=== PATIENT | female | born 1980 | race Caucasian/White ===

== ENCOUNTER 2018-10-31 12:05 | Inpatient (IN) | payer OTHER, BC ==
[~2018-10-31] VITALS: Ht 160 cm; Wt 72.7 kg
[2018-10-31 13:15] VITALS: BP 138/92
[2018-10-31 13:57] LABS: MICROSCOPIC NOT IND
[2018-10-31 13:57] LABS: BASOPHILS # (AUTO) 0.02 x10^3/uL (0-0.1); BASOPHILS % (AUTO) 0 % (0-1); EOSINOPHILS # (AUTO) 0.02 x10^3/uL (0-0.4); EOSINOPHILS % (AUTO) 0 % (1-7); LYMPHOCYTES # (AUTO) 1.81 x10^3/uL (1-3.4); LYMPHOCYTES % (AUTO) 17 % (22-44); MD NO; MEAN CORPUSCULAR HEMOGLOBIN 33.4 pg (27.0-34.8); MEAN CORPUSCULAR HGB CONC 33.9 g/dL (32.4-35.8); MEAN CORPUSCULAR VOLUME 98.5 fL (80-100); MEAN PLATELET VOLUME 7.7 fL (7.4-10.4); MONOCYTES # (AUTO) 0.42 x10^3/uL (0.2-0.8); MONOCYTES % (AUTO) 4 % (2-9); NEUTROPHILS # (AUTO) 8.54 x10^3/uL (1.8-6.8); NEUTROPHILS % (AUTO) 79 % (42-75); PLATELET COUNT 315 x10^3/uL (130-400); RED BLOOD COUNT 4.39 x10^6/uL (3.82-5.3); RED CELL DISTRIBUTION WIDTH 12.8 % (9.6-15.2)
[2018-10-31 14:07] LABS: ALBUMIN 2.8 g/dL (3.4-5.0); ANION GAP 9 mmol/L (5-15); CALCIUM 8.7 mg/dL (8.5-10.1); CHLORIDE 108 mmol/L (98-107)
[2018-10-31 14:11] LABS: ALANINE AMINOTRANSFERASE 36 U/L (12-78); ALKALINE PHOSPHATASE 139 U/L (45-117); BILIRUBIN,TOTAL 0.2 mg/dL (0.2-1.0); CREATININE 0.72 mg/dL (0.55-1.02); TOTAL PROTEIN 6.6 g/dL (6.4-8.2)
[2018-10-31] MEDS ORDERED: OXYTOCIN 30U/ 0.9% NaCL 500ML 500 ML IV ONE (14:29)
[2018-10-31] MEDS ORDERED: OXYTOCIN 30U/ 0.9% NaCL 500ML 500 ML IV PRN (14:29)
[2018-10-31] MEDS: D5%-LACTATED RINGERS 1,000 ML IV SCH ×2 (14:29→22:29)
[2018-10-31] MEDS ORDERED: FENTANYL PF 100 MCG/2ML IVPush PRN (14:30)
[2018-10-31] MEDS ORDERED: FENTANYL PF 100 MCG/2ML IV PRN (14:30)
[2018-10-31] MEDS ORDERED: CALCIUM CARBONATE 500 MG TAB.CHEW PO PRN (14:30)
[2018-10-31] MEDS ORDERED: ONDANSETRON 2MG/ML, 2ML IVPush PRN (14:30)
[2018-10-31] MEDS ORDERED: LIDOCAINE 1%, 20ML ONE (15:27)
[2018-10-31] MEDS ORDERED: OXYTOCIN 30U/ 0.9% NaCL 500ML 500 ML ONE (15:27)
[2018-10-31] MEDS ORDERED: CALCIUM CARBONATE 500 MG TAB.CHEW ONE (15:27)
[2018-10-31] MEDS ORDERED: MISOPROSTOL 200 MCG TABLET ONE (15:27)
[2018-10-31] MEDS ORDERED: NEWBORN KIT ONE (15:27)
[2018-10-31] MEDS ORDERED: MISOPROSTOL 25 MCG TABLET VG PRN (17:30)
[2018-10-31] MEDS ORDERED: MISOPROSTOL 25 MCG TABLET ONE (17:37)
[2018-10-31] MEDS: LACTATED RINGERS 1,000 ML IV SCH ×3 (18:46→22:06)
[2018-10-31] MEDS ORDERED: FENTANYL/BUPIV./NS/PF 250 ML EPIDCONT SCH ×2 (20:59→22:06)
[2018-10-31] MEDS ORDERED: FENTANYL/BUPIV./NS/PF 250 ML EPIDCONT ONE (21:15)
[2018-10-31] MEDS ORDERED: FENTANYL PF 500 MCG, BUPIVACAINE/PF 0.5%, 30ML 62.5 ML in SODIUM CHLORIDE 0.9% 177.5 ML EPIDCONT SCH (21:30)
[2018-10-31] MEDS ORDERED: NALOXONE 0.4 MG/ML, 1ML IVPush PRN (22:30)
[2018-10-31] MEDS ORDERED: EPHEDRINE 50 MG/ML, 1ML IVPush PRN (22:30)
[2018-10-31] MEDS ORDERED: LACTATED RINGERS 1,000 ML IVBOLUS PRN (22:30)
[2018-11-01] MEDS ORDERED: OXYTOCIN 30U/ 0.9% NaCL 500ML 500 ML ONE (02:10)
[2018-11-01] MEDS: OXYTOCIN 30U/ 0.9% NaCL 500ML 500 ML IV SCH ×2 (02:27→12:27)
[2018-11-01] MEDS ORDERED: HYDROcodone/APAP 5/325 TABLET PO PRN (02:30)
[2018-11-01] MEDS ORDERED: MISOPROSTOL 200 MCG TABLET PR PRN (02:30)
[2018-11-01] MEDS ORDERED: BISACODYL 10 MG SUPP PR PRN (02:30)
[2018-11-01] MEDS ORDERED: RHOGAM FROM BLOOD BANK 1 NOTE EA IM ONE (02:30)
[2018-11-01] MEDS ORDERED: ACETAMINOPHEN 325 MG TABLET PO PRN (02:30)
[2018-11-01] MEDS ORDERED: ONDANSETRON 2MG/ML, 2ML IV PRN (02:30)
[2018-11-01] MEDS ORDERED: IBUPROFEN 600 MG TABLET ONE (04:02)
[2018-11-01] MEDS ORDERED: OXYcodone/APAP 5/325MG TABLET ONE (04:03)
[2018-11-01] MEDS: IBUPROFEN 800 MG TABLET PO PRN ×3 (04:13→22:51)
[2018-11-01 04:15] VITALS: BP 138/86
[2018-11-01] MEDS: LACTATED RINGERS 1,000 ML IV SCH ×4 (06:06→14:29)
[2018-11-01] MEDS: D5%-LACTATED RINGERS 1,000 ML IV SCH ×2 (06:29→14:29)
[2018-11-01 07:33] VITALS: BP 123/76
[2018-11-01] MEDS: DOCUSATE 100 MG CAPSULE PO PRN ×2 (08:22→22:51)
[2018-11-01] MEDS: OXYcodone/APAP 5/325MG TABLET PO PRN ×4 (08:22→22:52)
[2018-11-01] MEDS: PRENATAL VIT/IRON/FA 1 EACH TABLET PO SCH (08:22)
[2018-11-01 12:30] VITALS: BP 119/81
[2018-11-01] MEDS ORDERED: OXYTOCIN 30U/ 0.9% NaCL 500ML 500 ML IV PRN (14:29)
[2018-11-01 16:20] VITALS: BP 135/87
[2018-11-01] MEDS ORDERED: DIPH,PERTUSS(ACELL),TET VAC/PF NC IM-VACC ONE (20:30)
[2018-11-01 21:00] VITALS: BP 120/81
[2018-11-01 21:56] LABS: BASOPHILS # (AUTO) 0.04 x10^3/uL (0-0.1); BASOPHILS % (AUTO) 0 % (0-1); EOSINOPHILS # (AUTO) 0.02 x10^3/uL (0-0.4); EOSINOPHILS % (AUTO) 0 % (1-7); LYMPHOCYTES # (AUTO) 1.67 x10^3/uL (1-3.4); LYMPHOCYTES % (AUTO) 12 % (22-44); MD NO; MEAN CORPUSCULAR HEMOGLOBIN 34.4 pg (27.0-34.8); MEAN CORPUSCULAR HGB CONC 34.2 g/dL (32.4-35.8); MEAN CORPUSCULAR VOLUME 100.4 fL (80-100); MEAN PLATELET VOLUME 7.8 fL (7.4-10.4); MONOCYTES # (AUTO) 0.37 x10^3/uL (0.2-0.8); MONOCYTES % (AUTO) 3 % (2-9); NEUTROPHILS # (AUTO) 12.11 x10^3/uL (1.8-6.8); NEUTROPHILS % (AUTO) 85 % (42-75); PLATELET COUNT 296 x10^3/uL (130-400); RED BLOOD COUNT 3.78 x10^6/uL (3.82-5.3); RED CELL DISTRIBUTION WIDTH 12.8 % (9.6-15.2)
[2018-11-02 07:55] VITALS: BP 139/89
[2018-11-02] MEDS: DOCUSATE 100 MG CAPSULE PO PRN (08:54)
[2018-11-02] MEDS: OXYcodone/APAP 5/325MG TABLET PO PRN ×2 (08:55→13:49)
[2018-11-02] MEDS: PRENATAL VIT/IRON/FA 1 EACH TABLET PO SCH (08:55)
[2018-11-02] MEDS: IBUPROFEN 800 MG TABLET PO PRN (08:55)
[2018-11-02] MEDS ORDERED: IBUP-1222 PO (13:40)
[2018-11-02] MEDS ORDERED: OXYC-302 PO (13:41)
== END 2018-11-02 15:00 | disposition home or self-care (01) | DRG 807 ==
LOC: LDOP 12:05 → LDIP 14:32 → 2NW 11-01 03:46
PROVIDERS: ADMIT Obstetrics & Gynecology; ATTEND Obstetrics & Gynecology
PROC: 10E0XZZ Delivery of Products of Conception, External Approach (ICD-10-PCS; principal; 2018-11-01)
PROC: 0HQ9XZZ Repair Perineum Skin, External Approach (ICD-10-PCS; 2018-11-01)
PROC: 3E0R3BZ Introduction of Anesthetic Agent into Spinal Canal, Percutaneous Approach (ICD-10-PCS; 2018-11-01)
PROC: 00HU33Z Insertion of Infusion Device into Spinal Canal, Percutaneous Approach (ICD-10-PCS; 2018-11-01)
DX: O13.4 Gestational [pregnancy-induced] hypertension without significant proteinuria, complicating childbirth (principal); Z37.0 Single live birth; O32.6XX0 Maternal care for compound presentation, not applicable or unspecified; O42.92 Full-term premature rupture of membranes, unspecified as to length of time between rupture and onset of labor; O69.81X0 Labor and delivery complicated by cord around neck, without compression, not applicable or unspecified; O70.0 First degree perineal laceration during delivery; O71.82 Other specified trauma to perineum and vulva; Z3A.39 39 weeks gestation of pregnancy
CPT/HCPCS: 36415; 76815; 80053; 81003; 82570; 84112; 84156; 84550; 85025; 86850; 86900; G0378; J3010; J2590; J7050; J7120